=== PATIENT | male | born 1995 | race American Indian/Alaskan Native ===

== ENCOUNTER 2017-02-26 01:45 | Emergency (ER) | payer BC, MEDICAID ==
[2017-02-26 01:55] VITALS: BP 128/91; PULSE 74; RESP 18; TEMP 98.4; O2SAT 99
[2017-02-26] MEDS ORDERED: Naproxen 500 MG TAB PO ONE ×2 (02:07→02:25)
--- NOTE | 2017-02-26 02:50 | ED PDOC ---
HPI: General Adult Time Seen by Provider: 02/26/17 01:58 Chief Complaint (Nursing): Upper Extremity Problem/Injury History Per: Patient Additional Complaint(s): Pt. states yesterday he was playing basketball then went home and went to sleep. He suddenly developed atraumatic R shoulder pain which woke him up from sleep. Pt. reports no trauma to shoulder. Denies radiation of pain, numbness, tingling, previous shoulder injuries, chest pain, SOB, weakness. Pt. is R hand dominant. Past Medical History Reviewed: Historical Data, Nursing Documentation, Vital Signs Vital Signs: Last Vital Signs Temp 98.4 F 02/26/17 01:52 Pulse 74 02/26/17 01:52 Resp 18 02/26/17 01:52 BP 128/91 H 02/26/17 01:52 Pulse Ox 99 02/26/17 02:53 - Surgical History Surgical History: No Surg Hx - Family History Family History: States: No Known Family Hx - Home Medications Home Medications: Ambulatory Orders Medication Instructions Recorded Naproxen [Naprosyn] 500 mg PO BID PRN #14 tab 02/26/17 - Allergies Allergies/Adverse Reactions: Allergies Allergy/AdvReac Type Severity Reaction Status Date / Time No Known Allergies Allergy Verified 02/26/17 01:52 Review of Systems ROS Statement: Except As Marked, All Systems Reviewed And Found Negative Musculoskeletal: Positive for: Shoulder Pain Physical Exam - Physical Exam Appears: Positive for: Well, Non-toxic, No Acute Distress Skin: Positive for: Normal Color, Warm. Negative for: Rash Eye Exam: Positive for: Normal appearance Neck: Positive for: Normal, Painless ROM Pulses-Radial (L): 2+ Pulses-Radial (R): 2+ Back: Positive for: Normal Inspection. Negative for: Vertebral Tenderness Extremity: Positive for: Capillary Refill (< 2 seconds of R shoulder), Other ( mild R lateral shoulder tenderness without deformity ). Negative for: Normal ROM (limited ROM secondary of R shoulder secondary to pain) Neurologic/Psych: Positive for: Alert, Oriented. Negative for: Aphasia, Facial Droop - ECG O2 Sat by Pulse Oximetry: 99 - Progress ED Course And Treament: Shoulder x-ray: no fx or bony abnormality Naproxen 500mg PO ordered. Disposition - Clinical Impression Clinical Impression: Shoulder pain - Patient ED Disposition Is Patient to be Admitted: No - Disposition Referrals: Juanpablo Wilson III, MD [Staff Provider] - Disposition: Routine/Home Disposition Time: 02:53 Condition: STABLE Additional Instructions: Follow up with orthopedist for further evaluation. Prescriptions: Naproxen [Naprosyn] 500 mg PO BID PRN #14 tab PRN Reason: Pain Instructions: Shoulder Pain (ED) Forms: [facility] (Estonian), [facility] ED School/Work Excuse
--- NOTE | 2017-02-26 11:46 | RAD ---
PROCEDURE: Radiographs of the Right Shoulder HISTORY: pain COMPARISON: No prior. FINDINGS: BONES: No acute fracture. JOINTS: Unremarkable. SOFT TISSUES: Normal. OTHER FINDINGS: None. IMPRESSION: No demonstrated fracture or dislocation.
== END 2017-02-26 03:24 | disposition home or self-care (01) ==
LOC: H.ER 01:45
DX: M25.511 Pain in right shoulder (principal)

== ENCOUNTER 2017-03-30 17:10 | Emergency (ER) | payer BC, MEDICAID ==
[2017-03-30 17:39] VITALS: BP 108/58; PULSE 60; RESP 18; TEMP 97.9; O2SAT 100
[2017-03-30] MEDS ORDERED: Oxycodone/Acetaminophen 5/325 mg Tab PO STA (18:24)
--- NOTE | 2017-03-30 18:27 | ED PDOC ---
Lower Extremity Pain/Injury Time Seen by Provider: 03/30/17 17:47 Chief Complaint (Nursing): Lower Extremity Problem/Injury Chief Complaint (Provider): Right ankle pain History Per: Patient History/Exam Limitations: no limitations Onset/Duration Of Symptoms: Mins Current Symptoms Are (Timing): Still Present Additional History Per: Patient Additional Complaint(s): 21yo male, presents to ER for evaluation of right ankle pain; patient states he injured his right ankle while playing basketball prior to arrival. He is unsure as to the mechanism of injury. Patient denies any numbness, tingling or weakness in his right lower extremity. He has no other complaints. Past Medical History Reviewed: Historical Data, Nursing Documentation, Vital Signs Vital Signs: Last Vital Signs Temp 97.9 F 03/30/17 17:37 Pulse 60 03/30/17 17:37 Resp 18 03/30/17 17:37 BP 108/58 L 03/30/17 17:37 Pulse Ox 100 03/30/17 17:37 - Medical History PMH: No Chronic Diseases - Surgical History Surgical History: No Surg Hx - Family History Family History: States: No Known Family Hx - Home Medications Home Medications: Ambulatory Orders Medication Instructions Recorded Naproxen [Naprosyn] 500 mg PO BID PRN #14 tab 02/26/17 Naproxen [Naprosyn] 500 mg PO BID PRN #20 tablet 03/30/17 - Allergies Allergies/Adverse Reactions: Allergies Allergy/AdvReac Type Severity Reaction Status Date / Time No Known Allergies Allergy Verified 03/30/17 17:37 Review of Systems ROS Statement: Except As Marked, All Systems Reviewed And Found Negative Musculoskeletal: Positive for: Foot Pain (right ankle) Neurological: Negative for: Weakness, Numbness Physical Exam - Reviewed Nursing Documentation Reviewed: Yes Vital Signs Reviewed: Yes - Physical Exam Appears: Positive for: Non-toxic Skin: Positive for: Normal Color Pulses-Dorsalis Pedis (R): 2+ Extremity: Positive for: Normal ROM, Tenderness (tenderness to right lateral malleolus), Capillary Refill (< 2 seconds), Other (no bruising noted). Negative for: Pedal Edema, Calf Tenderness, Deformity, Swelling Neurologic/Psych: Positive for: Alert, Oriented. Negative for: Motor/Sensory Deficits - ECG O2 Sat by Pulse Oximetry: 100 (RA) Pulse Ox Interpretation: Normal Medical Decision Making Medical Decision Making: Impression: Right ankle injury Plan: -- Percocet 1 tab PO -- XR Right ankle XR normal. Air cast and crutches. F/u with orthopedics. Scribe Attestation: Documented by Perla Lagos, acting as a scribe for Mallory Escobar PA-C Provider Scribe Attestation: All medical record entries made by the Scribe were at my direction and personally dictated by me. I have reviewed the chart and agree that the record accurately reflects my personal performance of the history, physical exam, medical decision making, and the department course for this patient. I have also personally directed, reviewed, and agree with the discharge instructions and disposition. Disposition - Clinical Impression Clinical Impression: Ankle injury - Patient ED Disposition Is Patient to be Admitted: No Counseled Patient/Family Regarding: Diagnosis, Need For Followup, Rx Given - Disposition Referrals: Juanpablo Wilson III, MD [Staff Provider] - Disposition: Routine/Home Disposition Time: 19:41 Condition: STABLE Prescriptions: Naproxen [Naprosyn] 500 mg PO BID PRN #20 tablet PRN Reason: Pain Instructions: Ankle Sprain Forms: [employer] (Bermudian)
--- NOTE | 2017-03-31 11:41 | RAD ---
PROCEDURE: Right Ankle Radiographs. HISTORY: lateral ankle pain, injuried in basketball COMPARISON: None FINDINGS: BONES: No acute fracture or destructive bony lesion identified. JOINTS: Normal. No osteoarthritis. Ankle mortise maintained. Talar dome intact SOFT TISSUES: Normal. OTHER FINDINGS: There is a tiny plantar calcaneal spur identified. IMPRESSION: No acute fracture dislocation. Tiny plantar calcaneal spur noted.
== END 2017-03-30 20:06 | disposition home or self-care (01) ==
LOC: H.ER 17:10
DX: S99.911A Unspecified injury of right ankle, initial encounter (principal); M77.31 Calcaneal spur, right foot; Y93.67 Activity, basketball

== ENCOUNTER 2017-05-06 03:04 | Emergency (ER) | payer BC, MEDICAID ==
--- NOTE | 2017-05-06 03:55 | ED PDOC ---
Upper Extremity Pain/Injury Time Seen by Provider: 05/06/17 03:20 Chief Complaint (Nursing): Finger,Hand,&Wrist Chief Complaint (Provider): Wrist Injury History Per: Patient History/Exam Limitations: no limitations Onset/Duration Of Symptoms: Hrs (6 hours ago) Current Symptoms Are (Timing): Still Present Additional Complaint(s): 21 yo male presents to the ED after falling on out-stretched right hand, while playing a game of basketball, onset of 6 hours ago. Patient reports feeling fine and didn't notice any pain until he tried to go to sleep. He denies any other complaints. Of note, the patient is left handed. Past Medical History Reviewed: Historical Data, Nursing Documentation, Vital Signs Vital Signs: Last Vital Signs Temp 98.3 F 05/06/17 03:13 Pulse 82 05/06/17 03:13 Resp 16 05/06/17 03:13 BP 111/63 05/06/17 03:13 Pulse Ox 97 05/06/17 03:13 - Medical History PMH: No Chronic Diseases - Surgical History Surgical History: No Surg Hx - Family History Family History: States: Unknown Family Hx - Social History Current smoker - smoking cessation education provided: Yes (heavy) Alcohol: None Drugs: Cannabis - Home Medications Home Medications: Ambulatory Orders Medication Instructions Recorded Naproxen [Naprosyn] 500 mg PO BID PRN #14 tab 02/26/17 Naproxen [Naprosyn] 500 mg PO BID PRN #20 tablet 03/30/17 Ibuprofen [Motrin Tab] 600 mg PO Q6 #30 tab 05/06/17 - Allergies Allergies/Adverse Reactions: Allergies Allergy/AdvReac Type Severity Reaction Status Date / Time No Known Allergies Allergy Verified 05/06/17 03:13 Review of Systems ROS Statement: Except As Marked, All Systems Reviewed And Found Negative Constitutional: Negative for: Fever Musculoskeletal: Positive for: Hand Pain (right wrist pain) Physical Exam - Reviewed Nursing Documentation Reviewed: Yes Vital Signs Reviewed: Yes - Physical Exam Appears: Positive for: Well, Non-toxic, No Acute Distress Head Exam: Positive for: ATRAUMATIC Skin: Positive for: Normal Color Eye Exam: Positive for: Normal appearance ENT: Positive for: Normal ENT Inspection Back: Positive for: Normal Inspection Extremity: Positive for: Normal ROM, Tenderness (mid-wrist tenderness on volar surface), Other (no scaphoid tenderness; neurovasculary intact). Negative for: Swelling Neurologic/Psych: Positive for: Alert, Oriented, Other - ECG O2 Sat by Pulse Oximetry: 97 (RA) Pulse Ox Interpretation: Normal Medical Decision Making Medical Decision Making: Time: --03:25 Impression: --Wrist Pain vs. Wrist Contusion vs. Wrist Fracture Plan: --ibuprofen 600mg PO --Wrist, Right 3 Views X-ray Reassess 5AM [facility] Final Radiology Report Call: [phone] assistance Online chat: [email or web address] Patient Name: GENE GRAY (Age): 1995 Gender: M Date of Exam: 05/06/2017 Referring Physician: Vernon Araujo # of Images: 4 Ordered As: XR WRIST RIGHT 3 VIEWS CONFIDENTIALITY STATEMENT This report is intended only for use by the referring physician, and only in accordance with law. If you received this in error, call [phone]. Page 1 of 1 EXAM: XR Right Wrist Complete, 3 or More Views CLINICAL HISTORY: 21 years old, male; Pain; Wrist; Right; Additional info: S/P fall, foosh TECHNIQUE: Frontal, lateral and oblique views of the right wrist. COMPARISON: No relevant prior studies available. FINDINGS: Bones/joints: Dorsal angulation of lunate likely positioning. No acute fracture. No dislocation. Soft tissues: Unremarkable. No radiopaque foreign body. IMPRESSION: There is no evidence of acute fracture. Thank you for allowing us to participate in the care of your patient. Dictated and Authenticated by: Mikaela Cheng MD 05/06/2017 5:02 AM Eastern Time ([place] & [place]) Patient placed in wrist splint and referred to ortho. NSAID prescribed. Return precautions discussed. Encouraged to followup. Scribe Attestation: Documented by Will David acting as a scribe for Vernon Araujo MD. Provider Attestation: All medical record entries made by the Scribe were at my direction and personally dictated by me. I have reviewed the chart and agree that the record accurately reflects my personal performance of the history, physical exam, medical decision making, and the department course for this patient. I have also personally directed, reviewed, and agree with the discharge instructions and disposition. Disposition - Clinical Impression Clinical Impression: Wrist contusion - Disposition Referrals: Vipin Russell MD [Medical Doctor] - Disposition: Routine/Home Disposition Time: 05:07 Condition: IMPROVED Prescriptions: Ibuprofen [Motrin Tab] 600 mg PO Q6 #30 tab Instructions: Wrist Sprain (DC) Forms: [employer] (Spanish)
--- NOTE | 2017-05-06 05:02 | RAD ---
EXAM: XR Right Wrist Complete, 3 or More Views CLINICAL HISTORY: 21 years old, male; Pain; Wrist; Right; Additional info: S/P fall, foosh TECHNIQUE: Frontal, lateral and oblique views of the right wrist. COMPARISON: No relevant prior studies available. FINDINGS: Bones/joints: Dorsal angulation of lunate likely positioning. No acute fracture. No dislocation. Soft tissues: Unremarkable. No radiopaque foreign body. IMPRESSION: There is no evidence of acute fracture.
[2017-05-06 12:13] VITALS: BP 111/63; PULSE 82; RESP 16; TEMP 98.3; O2SAT 97; BMI 24.3
== END 2017-05-06 05:18 | disposition home or self-care (01) ==
LOC: H.ER 03:04
DX: S60.211A Contusion of right wrist, initial encounter (principal); W19.XXXA Unspecified fall, initial encounter; Y92.310 Basketball court as the place of occurrence of the external cause